=== PATIENT | male | born 1995 | race Two or more races ===

== ENCOUNTER 2017-05-08 07:46 | Emergency (ER) | payer MEDICAID ==
[~2017-05-08] VITALS: Ht 167.6 cm; Wt 70.8 kg
[2017-05-08 08:59] VITALS: BP 150/98
[2017-05-08] MEDS ORDERED: KETOROLAC TROMETH 60MG/2ML VIAL IM ONE (09:45)
[2017-05-08] MEDS ORDERED: SODIUM CHLORIDE 0.9% 2,000 ML IV ONE (09:49)
[2017-05-08 10:45] LABS: Urine Bilirubin Negative (Negative); Urine Blood Negative /uL (Negative); Urine Color Yellow (Yellow); Urine Glucose Normal (Normal); Urine Ketone 4+ (Negative); Urine Mucus FEW (None Seen); Urine Nitrite Negative (Negative); Urine RBC <1 /hpf (0 - 3); Urine pH 6.5 (5.0-8.0)
[2017-05-08] MEDS ORDERED: KETOROLAC TROMETH 30 MG/ML 1ML VIAL IV ONE (11:00)
== END 2017-05-08 12:11 | disposition home or self-care (01) ==
LOC: ER 07:55
DX: S33.5XXA Sprain of ligaments of lumbar spine, initial encounter (principal); F17.210 Nicotine dependence, cigarettes, uncomplicated; X58.XXXA Exposure to other specified factors, initial encounter; Y93.89 Activity, other specified; Y92.89 Other specified places as the place of occurrence of the external cause; Y99.8 Other external cause status
CPT/HCPCS: 51702; 80307; 81001; 96360; 99284; J1885; J7030

== ENCOUNTER 2022-04-17 15:32 | Emergency (ER) | payer MEDICAID ==
[~2022-04-17] VITALS: Ht 162.6 cm; Wt 54.0 kg
[2022-04-17] MEDS ORDERED: TETANUS-DIPTH-ACEL PERTUSSIS 0.5ML SYR Tdap IM ONE (15:45)
[2022-04-17] MEDS ORDERED: HYDROcodone-ACET 10/325MG TAB PO ONE (18:00)
[2022-04-17] MEDS ORDERED: CLIN300C8 PO (18:17)
[2022-04-17] MEDS ORDERED: CEPH-509 PO (18:17)
[2022-04-17] MEDS ORDERED: IBU600T PO (18:20)
[2022-04-17 18:49] VITALS: BP 133/95
== END 2022-04-17 20:37 | disposition home or self-care (01) ==
LOC: ER 15:32 → EDBD 15:32 → ER 20:37
DX: S68.110A Complete traumatic metacarpophalangeal amputation of right index finger, initial encounter (principal); X58.XXXA Exposure to other specified factors, initial encounter; Y93.89 Activity, other specified; Y92.89 Other specified places as the place of occurrence of the external cause; Y99.8 Other external cause status
CPT/HCPCS: 73130; 90471; 90715

== ENCOUNTER 2022-06-09 17:33 | Emergency (ER) | payer MEDICAID ==
[~2022-06-09 17:33] MED LIST: CEPH-509 PO; CLIN300C8 PO; IBU600T PO
== END 2022-06-09 18:17 | disposition left against medical advice (07) ==
LOC: ER 17:35
DX: Z00.00 Encounter for general adult medical examination without abnormal findings (principal); Z53.21 Procedure and treatment not carried out due to patient leaving prior to being seen by health care provider

== ENCOUNTER 2022-12-20 11:50 | Emergency (ER) | payer MEDICAID ==
[~2022-12-20] VITALS: Ht 162.6 cm; Wt 79.6 kg
[2022-12-20 12:58] VITALS: BP 163/100
[2022-12-20] MEDS ORDERED: METH750T22 PO (13:39)
[2022-12-20] MEDS ORDERED: IBUP800T27 PO (13:39)
== END 2022-12-20 13:36 | disposition home or self-care (01) ==
LOC: ER 11:50
DX: S39.012A Strain of muscle, fascia and tendon of lower back, initial encounter (principal); Z88.6 Allergy status to analgesic agent; W10.9XXA Fall (on) (from) unspecified stairs and steps, initial encounter; Y93.89 Activity, other specified; Y92.89 Other specified places as the place of occurrence of the external cause; Y99.8 Other external cause status
CPT/HCPCS: 72100